=== PATIENT | female | born 1975 | race Hispanic/Latino ===

== ENCOUNTER 2022-02-25 13:46 | Inpatient (IN) | payer BC ==
[~2022-02-25] VITALS: Ht 154.9 cm; Wt 67.0 kg
[2022-02-25 14:22] LABS: BASOPHILS % (AUTO) 0.1 % (0.0-5.0); EOSINOPHILS % (AUTO) 0.3 % (0.0-8.0); HEMATOCRIT 27.8 % (36-48); LYMPHOCYTES % (AUTO) 3.5 % (21.0-51.0); MEAN CORPUSCULAR HEMOGLOBIN 27.9 pg (27.0-33.0); MEAN CORPUSCULAR HGB CONC 33.5 g/dL (32.0-36.0); MEAN CORPUSCULAR VOLUME 83.5 fL (79-99); MONOCYTES % (AUTO) 1.5 % (3.0-13.0); NEUTROPHILS % (AUTO) 94.3 % (40.0-77.0); PLATELET COUNT (AUTO) 316 K/uL (130-400); RED BLOOD CELL COUNT(AUTO) 3.33 MIL/uL (4.00-5.50); RED CELL DISTRIBUTION WIDTH 14.3 % (11.0-15.5); WHITE BLOOD COUNT (AUTO) 9.1 K/uL (4.8-10.8)
[2022-02-25 14:36] LABS: CREATININE 1.5 mg/dL (0.5-1.5); POTASSIUM 4.6 mmol/L (3.5-5.1)
[2022-02-25 14:37] LABS: ALBUMIN 1.7 g/dL (3.5-5.0); TOTAL PROTEIN, SERUM 5.6 g/dL (6.0-8.3)
[2022-02-25 14:57] LABS: APPEARANCE,URINE CLEAR (CLEAR); BILIRUBIN,URINE NEGATIVE (NEGATIVE); COLOR,URINE YELLOW (YELLOW); GLUCOSE, URINE (UA) >=1000 mg/dL (NEGATIVE); KETONES,URINE NEGATIVE (NEGATIVE); LEUKOCYTE ESTERASE ,URINE NEGATIVE (NEGATIVE); NITRATE,URINE NEGATIVE (NEGATIVE); OCCULT BLOOD,URINE SMALL (NEGATIVE); PROTEIN,URINE 100 mg/dL (NEGATIVE); UROBILINOGEN,URINE 0.2 mg/dL (0.2-1.0)
[2022-02-25 15:08] LABS: BACTERIA,URINE Rare /HPF (None Seen); MUCUS,URINE Few LPF (None Seen); SQUAMOUS EPITHELIAL CELL,UR Moderate /HPF (0-2); YEAST,URINE BUDDING Few /HPF (None Seen)
[2022-02-25] MEDS ORDERED: 0.9%NACL 1000ML 1,000 ML IV ONE (15:30)
[2022-02-25] MEDS ORDERED: INSULIN HUMULIN R 100 UNIT/ML 3ML IV ONE (15:30)
[2022-02-25] MEDS ORDERED: NIFEDIPINE 10 MG CAP PO ONE (15:30)
[2022-02-25 15:35] LABS: ABG BASE EXCESS 0.4 mmol/L (-2.0-3.0); ABG OXYGEN SATURATION 95.4 % (95.0-99.0); ABG PCO2 40 mmHg (32-45)
[2022-02-25] MEDS ORDERED: HYDRALAZINE 20MG/ML VIAL IV PRN (16:00)
[2022-02-25] MEDS ORDERED: INSULIN REGULAR, HUMAN 3ML 100 UNIT in 0.9%NACL 100ML 99 ML IV PRN ×2 (16:00)
[2022-02-25 16:32] LABS: HEMOGLOBIN A1C 11.3 % (4.0-6.0)
[2022-02-25 16:34] LABS: AMPHET/METH SCREEN,URINE NEGATIVE (NEGATIVE); BARBITURATE SCREEN, URINE NEGATIVE (NEGATIVE); BENZODIAZEPINES SCREEN,URINE NEGATIVE (NEGATIVE); CANNABINOID SCREEN,URINE NEGATIVE (NEGATIVE); COCAINE SCREEN,URINE NEGATIVE (NEGATIVE); OPIATE SCREEN,URINE NEGATIVE (NEGATIVE); PHENCYCLIDINE SCREEN,URINE NEGATIVE (NEGATIVE)
[2022-02-25] MEDS ORDERED: AMLO5TAB4 PO (16:52)
[2022-02-25] MEDS ORDERED: FURO20TA4 PO (16:56)
[2022-02-25] MEDS ORDERED: LISI20TA24 PO (16:56)
[2022-02-25] MEDS ORDERED: POTASSIUM CHLORIDE 10MEQ/100ML 100 ML IV PRN (17:00)
[2022-02-25] MEDS ORDERED: DEXTROSE 5 %-0.45 % NACL 1,000 ML IV PRN (17:00)
[2022-02-25] MEDS: 0.9%NACL 1000ML 1,000 ML IV SCH ×2 (17:45→22:00)
[2022-02-25 17:48] LABS: CREATININE 1.6 mg/dL (0.5-1.5)
[2022-02-25] MEDS: AMLODIPINE 5 MG TAB PO SCH (18:30)
[2022-02-25] MEDS ORDERED: 0.9%NACL 50ML 50 ML IV ONE (18:39)
[2022-02-25] MEDS: CEFTRIAXONE 1G VIAL IVP SCH ×2 (18:40→18:48)
[2022-02-25 20:00] VITALS: BP 167/88
[2022-02-25] MEDS: LISINOPRIL 20 MG TABLET PO SCH (20:46)
[2022-02-25 21:00] VITALS: BP 162/81
[2022-02-25 22:00] VITALS: BP 161/88
[2022-02-25 22:30] LABS: CREATININE 1.1 mg/dL (0.5-1.5); POTASSIUM 3.6 mmol/L (3.5-5.1)
[2022-02-25 23:00] VITALS: BP 156/85
[2022-02-26] VITALS (13 sets, daily range): BP systolic 104–159; BP diastolic 60–88
[2022-02-26 01:27] LABS: POTASSIUM 3.5 mmol/L (3.5-5.1)
[2022-02-26] MEDS ORDERED: ALPRAZOLAM 1 MG TAB PO PRN (02:00)
[2022-02-26] MEDS: 0.9%NACL 1000ML 1,000 ML IV SCH (03:00)
[2022-02-26 04:31] LABS: CREATININE 0.9 mg/dL (0.5-1.5); POTASSIUM 3.2 mmol/L (3.5-5.1)
[2022-02-26 04:45] LABS: ABG BASE EXCESS 1.2 mmol/L (-2.0-3.0); ABG HCO3 25.6 mmol/L (21.0-28.0); ABG OXYGEN SATURATION 95.7 % (95.0-99.0); ABG PCO2 39 mmHg (32-45)
[2022-02-26] MEDS ORDERED: POTASSIUM CHLORIDE 10MEQ/100ML 100 ML IV PRN (07:00)
[2022-02-26] MEDS ORDERED: POTASSIUM CHLORIDE 10% ELIXIR 20 MEQ/15 ML UDCUP PO PRN (07:00)
[2022-02-26] MEDS ORDERED: LIDOCAINE HCL-MPF 1% 2ML VIAL IJ PRN (07:00)
[2022-02-26] MEDS: INSULIN HUMULIN R 100 UNIT/ML 3ML SQ SCH ×4 (07:08→20:54)
[2022-02-26] MEDS: AMLODIPINE 5 MG TAB PO SCH (09:06)
[2022-02-26] MEDS: LISINOPRIL 20 MG TABLET PO SCH ×2 (09:06→20:43)
[2022-02-26] MEDS: INSULIN GLARGINE 100 UNITS/ML 10 ML VIAL SQ SCH ×2 (09:09→20:54)
[2022-02-26 09:12] LABS: CREATININE 0.9 mg/dL (0.5-1.5); POTASSIUM 3.4 mmol/L (3.5-5.1)
[2022-02-26 13:27] LABS: CREATININE 1.1 mg/dL (0.5-1.5); POTASSIUM 3.3 mmol/L (3.5-5.1)
[2022-02-26 17:21] LABS: CREATININE 1.1 mg/dL (0.5-1.5); POTASSIUM 3.4 mmol/L (3.5-5.1)
[2022-02-26] MEDS ORDERED: ACETAMINOPHEN WITH CODEINE 1 TAB TAB PO PRN ×2 (18:00)
[2022-02-26] MEDS ORDERED: ACETAMINOPHEN 325 MG TAB PO PRN (18:00)
[2022-02-26] MEDS: KCL 20 MEQ ERTAB PO PRN ×2 (18:35→20:44)
[2022-02-26 21:21] LABS: CREATININE 1.2 mg/dL (0.5-1.5); POTASSIUM 3.3 mmol/L (3.5-5.1)
[2022-02-27] VITALS: BP 140/71
[2022-02-27 00:58] LABS: CREATININE 1.2 mg/dL (0.5-1.5); POTASSIUM 3.6 mmol/L (3.5-5.1)
[2022-02-27 04:00] VITALS: BP 143/76
[2022-02-27 05:02] LABS: BASOPHILS % (AUTO) 0.1 % (0.0-5.0); HEMATOCRIT 23.1 % (36-48); LYMPHOCYTES % (AUTO) 23.4 % (21.0-51.0); MEAN CORPUSCULAR HGB CONC 31.6 g/dL (32.0-36.0); MEAN CORPUSCULAR VOLUME 85.6 fL (79-99); MONOCYTES % (AUTO) 6.7 % (3.0-13.0); NEUTROPHILS % (AUTO) 67.4 % (40.0-77.0); PLATELET COUNT (AUTO) 246 K/uL (130-400); RED CELL DISTRIBUTION WIDTH 14.9 % (11.0-15.5); WHITE BLOOD COUNT (AUTO) 7.5 K/uL (4.8-10.8)
[2022-02-27 05:24] LABS: ALBUMIN 1.3 g/dL (3.5-5.0); CREATININE 1.2 mg/dL (0.5-1.5); POTASSIUM 3.8 mmol/L (3.5-5.1); TOTAL PROTEIN, SERUM 4.3 g/dL (6.0-8.3)
[2022-02-27] MEDS: INSULIN HUMULIN R 100 UNIT/ML 3ML SQ SCH ×2 (07:03→11:30)
[2022-02-27 07:18] VITALS: BP 140/71
[2022-02-27] MEDS: INSULIN GLARGINE 100 UNITS/ML 10 ML VIAL SQ SCH (07:24)
[2022-02-27] MEDS: LISINOPRIL 20 MG TABLET PO SCH (08:39)
[2022-02-27] MEDS: AMLODIPINE 5 MG TAB PO SCH (08:39)
[2022-02-27] MEDS ORDERED: ENOXAPARIN SODIUM 40 MG/0.4 ML SYRINGE SQ SCH (09:00)
[2022-02-27] MEDS ORDERED: GLIM4TAB36 PO (11:34)
[2022-02-27] MEDS ORDERED: INSLAN SQ (11:34)
[2022-02-27] MEDS ORDERED: CEPH500T PO (11:34)
[2022-02-27] MEDS ORDERED: [UNRECOGNIZED DRUG - OTHER] MC (11:34)
[2022-02-27] MEDS ORDERED: METF-446 PO (11:34)
[2022-02-27] MEDS ORDERED: TRAM50TA4 PO (11:39)
[2022-02-27 12:04] VITALS: BP 166/86
== END 2022-02-27 16:10 | disposition home or self-care (01) | DRG 638 ==
LOC: EDH 13:46 → EDHIP 15:51 → 2CH 20:21 → 3DH 02-26 11:06
PROVIDERS: ADMIT Internal Medicine; ATTEND Internal Medicine
DX: E11.00 Type 2 diabetes mellitus with hyperosmolarity without nonketotic hyperglycemic-hyperosmolar coma (NKHHC) (principal); E87.1 Hypo-osmolality and hyponatremia; N17.9 Acute kidney failure, unspecified; T38.0X5A Adverse effect of glucocorticoids and synthetic analogues, initial encounter; I16.0 Hypertensive urgency; D64.9 Anemia, unspecified; E78.5 Hyperlipidemia, unspecified; I10 Essential (primary) hypertension; Z20.822 Contact with and (suspected) exposure to COVID-19; Z91.19 Patient's noncompliance with other medical treatment and regimen; F41.9 Anxiety disorder, unspecified; Y92.89 Other specified places as the place of occurrence of the external cause; R53.1 Weakness; Z87.440 Personal history of urinary (tract) infections; Z87.01 Personal history of pneumonia (recurrent)
CPT/HCPCS: 36415; 36600; 70450; 71045; 80048; 80053; 80305; 81001; 81025; 82010; 82435; 82803; 82947; 82948; 83036; 83605; 83615; 83735; 83930; 84132; 84145; 84295; 84443; 84484; 85018; 85025; 87088; 87635; 93005; 99291; G0378; J0696; J1650; J1815; J7030